=== PATIENT | male | born 1980 | race Caucasian/White ===

== ENCOUNTER 2016-08-31 17:41 | Emergency (ER) | payer MEDICAID ==
[~2016-08-31] VITALS: Ht 175.3 cm; Wt 81.8 kg
[~2016-08-31 17:41] MED LIST: DIVA500T69 PO; OLAN10TA20 PO
[2016-08-31 18:43] LABS: BASOPHILS % (AUTO) 0.2 % (0.0-2.0); EOSINOPHILS % (AUTO) 1.1 % (1.0-6.0); HEMATOCRIT 46.6 % (41-53); LYMPHOCYTES # (AUTO) 2.7 K/uL (1.0-4.8); MEAN CORPUSCULAR HEMOGLOBIN 28.4 pg (26.0-34.0); MEAN CORPUSCULAR HGB CONC 32.2 G/dL (31.0-37.0); MEAN CORPUSCULAR VOLUME 88 fL (80-100); MONOCYTES # (AUTO) 0.8 K/uL (0.1-1.0); MONOCYTES % (AUTO) 7.2 % (2.0-9.0); NEUTROPHILS # (AUTO) 7.7 K/uL (1.8-7.7); NEUTROPHILS % (AUTO) 67.5 % (40.0-70.0); PLATELET COUNT (AUTO) 275 K/uL (150-450); RED BLOOD CELL COUNT(AUTO) 5.28 MIL/uL (4.50-5.90); RED CELL DISTRIBUTION WIDTH 14.5 % (11.5-14.5); WHITE BLOOD COUNT (AUTO) 11.4 K/uL (4.5-11.0)
[2016-08-31] MEDS ORDERED: LORazepam 2 MG/ML VIAL IVP ONE (18:45)
[2016-08-31] MEDS ORDERED: MAGNESIUM SULFATE 2 GM, MVI, ADULT NO.1 WITH VIT K 10 ML, THIAMINE HCL 100 MG, FOLIC AC... IV ONE ×5 (18:45)
[2016-08-31 18:51] LABS: ANION GAP 16 mmol/L (8-16); CARBON DIOXIDE 23 mmol/L (22-29); CHLORIDE 101 mmol/L (98-107); CREATININE 0.93 mg/dL (0.60-1.30); GLOMERULAR FILTR. RATE CALC > 60 mL/min (>60); POTASSIUM 4.1 mmol/L (3.5-5.1); SODIUM SERUM 140 mmol/L (136-145); UREA NITROGEN, BLOOD 13 mg/dL (7-18)
[2016-08-31 18:56] LABS: ALANINE AMINOTRANSFERASE 140 U/L (12-78); ALBUMIN 4.5 g/dL (3.4-5.0); ASPARTATE AMINOTRANSFERASE 88 U/L (15-37); BILIRUBIN,TOTAL 0.7 mg/dL (0.1-1.0); TOTAL PROTEIN, SERUM 8.3 g/dL (6.4-8.2)
[2016-09-01 00:25] VITALS: BP 126/74
== END 2016-09-01 01:50 | disposition home or self-care (01) ==
LOC: MERGE 17:43 → EDBD 17:43 → EMS 17:43
DX: R41.82 Altered mental status, unspecified (principal); R45.851 Suicidal ideations; F10.129 Alcohol abuse with intoxication, unspecified; Y90.6 Blood alcohol level of 120-199 mg/100 ml
CPT/HCPCS: 36415; 80053; 85025; 96365; 96366; 96375; 99284; G0480; J2060; J3411; J3475; J3490 ×2; J7030

== ENCOUNTER 2016-09-20 20:13 | Emergency (ER) | payer MEDICAID, OTHER ==
[~2016-09-20] VITALS: Ht 175.3 cm; Wt 81.0 kg
[2016-09-20] MEDS ORDERED: PredniSONE 20 MG TABLET PO ONE (21:15)
[2016-09-20] MEDS ORDERED: FAMOTIDINE 20 MG TABLET PO ONE (21:15)
[2016-09-20] MEDS ORDERED: LORATADINE 10 MG TABLET PO ONE (21:15)
[2016-09-20 21:20] VITALS: BP 132/78
== END 2016-09-20 21:24 | disposition home or self-care (01) ==
LOC: EMS 20:14
DX: L50.0 Allergic urticaria (principal); F17.210 Nicotine dependence, cigarettes, uncomplicated; F12.90 Cannabis use, unspecified, uncomplicated
CPT/HCPCS: 99284; J7512

== ENCOUNTER 2016-09-20 23:09 | Inpatient (IN) | payer MEDICAID ==
[~2016-09-20] VITALS: Ht 177.8 cm; Wt 77.0 kg
[2016-09-21] MEDS ORDERED: ZOLPIDEM TARTRATE 10 MG TABLET PO PRN (00:15)
[2016-09-21] MEDS ORDERED: HALOPERIDOL 5 MG TABLET PO PRN (00:15)
[2016-09-21 00:34] VITALS: BP 120/66
[2016-09-21 00:50] VITALS: BP 137/80
[2016-09-21] MEDS ORDERED: PNEUMOCOCCAL VACCINE POLYVALENT 0.5 ML VIAL [PPSV23] IM ONE (02:00)
[2016-09-21 08:36] VITALS: BP 132/65
[2016-09-21] MEDS: LORazepam 2 MG TABLET PO PRN ×2 (09:45→20:21)
[2016-09-21 16:00] VITALS: BP 139/81
[2016-09-21] MEDS: OLANZapine 10 MG TABLET PO SCH (20:21)
[2016-09-21] MEDS: DIVALPROEX SODIUM 500 MG ER TABLET PO SCH (20:21)
[2016-09-22 04:57] VITALS: BP 125/75
[2016-09-22] MEDS: LORazepam 2 MG TABLET PO PRN (08:21)
[2016-09-22 08:30] VITALS: BP 119/75
[2016-09-22] MEDS ORDERED: BISACODYL 5 MG EC TABLET PO PRN (09:30)
[2016-09-22 16:15] VITALS: BP 112/76
[2016-09-22] MEDS: DOCUSATE SODIUM 100 MG CAPSULE PO SCH (17:04)
[2016-09-22] MEDS: OLANZapine 10 MG TABLET PO SCH ×2 (20:35→20:40)
[2016-09-22] MEDS: DIVALPROEX SODIUM 500 MG ER TABLET PO SCH ×2 (20:35→21:00)
[2016-09-23 07:00] VITALS: BP 113/71
[2016-09-23 08:45] VITALS: BP 124/79
[2016-09-23] MEDS: LORazepam 2 MG TABLET PO PRN ×2 (09:45→16:56)
[2016-09-23] MEDS: DOCUSATE SODIUM 100 MG CAPSULE PO SCH ×2 (09:45→16:55)
[2016-09-23 16:00] VITALS: BP 121/69
[2016-09-23] MEDS: OLANZapine 10 MG TABLET PO SCH (20:59)
[2016-09-23] MEDS: DIVALPROEX SODIUM 500 MG ER TABLET PO SCH (20:59)
[2016-09-24 01:40] VITALS: BP 123/73
[2016-09-24 08:40] VITALS: BP 125/74
[2016-09-24] MEDS: DOCUSATE SODIUM 100 MG CAPSULE PO SCH ×2 (09:32→16:44)
[2016-09-24] MEDS: LORazepam 2 MG TABLET PO PRN ×2 (09:32→16:44)
[2016-09-24] MEDS ORDERED: ALBU8HFA IH (15:52)
[2016-09-24] MEDS ORDERED: DSS100 PO (15:53)
[2016-09-24 16:00] VITALS: BP 120/76
[2016-09-24] MEDS: DIVALPROEX SODIUM 500 MG ER TABLET PO SCH (20:29)
[2016-09-24] MEDS: OLANZapine 10 MG TABLET PO SCH (20:29)
[2016-09-25 01:45] VITALS: BP 111/64
== END 2016-09-25 08:03 | disposition home or self-care (01) | DRG 750 ==
LOC: B3A 09-21 00:41
PROVIDERS: ADMIT Psychiatry & Neurology Child & Adolescent Psychiatry; ATTEND Psychiatry & Neurology Child & Adolescent Psychiatry
DX: F25.0 Schizoaffective disorder, bipolar type (principal); D64.9 Anemia, unspecified; J45.909 Unspecified asthma, uncomplicated; K59.00 Constipation, unspecified; Z72.0 Tobacco use; F12.90 Cannabis use, unspecified, uncomplicated; F15.90 Other stimulant use, unspecified, uncomplicated; Z23 Encounter for immunization
CPT/HCPCS: 90471